=== PATIENT | female | born 1960 | race Caucasian/White ===

== ENCOUNTER 2016-11-18 12:45 | Emergency (ER) | payer OTHER ==
[2016-11-18 15:30] VITALS: BP 156/92
== END 2016-11-18 15:30 | disposition home or self-care (01) ==
LOC: ED 12:45
DX: I10 Essential (primary) hypertension (principal); R60.0 Localized edema; E66.9 Obesity, unspecified; F17.200 Nicotine dependence, unspecified, uncomplicated